=== PATIENT | male | born 1960 | race Caucasian/White ===

== ENCOUNTER 2023-07-28 12:34 | Emergency (ER) | payer MEDICAID ==
[~2023-07-28] VITALS: Ht 182.9 cm; Wt 99.8 kg
[2023-07-28 12:35] VITALS: BP_SYST 156; PULSE 100; RESP 21; TEMP 98.9; O2SAT 97
[2023-07-28] MEDS ORDERED: methylPREDNISolone SOD SUCC/PF 62.5 MG/ML VIAL IVP ONE (12:45)
[2023-07-28] MEDS ORDERED: IPRATROPIUM/ALBUTEROL SULFATE 3 ML AMPUL.NEB (DUONEB) INH ONE (12:45)
[2023-07-28 13:28] LABS: ANION GAP 10 (5-15); CALCIUM 9.2 mg/dL (8.4-11.0); CARBON DIOXIDE 30 mmol/L (23-29); CHLORIDE 101 mmol/L (98-107); CREATININE 1.88 mg/dL (0.55-1.30); GFR AFRICAN AMERICAN 47 mL/min (>90); GLUCOSE 101 mg/dL (74-106); POTASSIUM 3.4 mmol/L (3.5-5.1); SODIUM SERUM 141 mmol/L (136-145); UREA NITROGEN, BLOOD 40 mg/dL (8-21)
[2023-07-28] MEDS ORDERED: PRED20TA PO ×2 (13:29)
[2023-07-28] MEDS ORDERED: ACYC400T19 PO ×2 (13:29)
[2023-07-28 13:30] LABS: GFR NON AFRICAN-AMERICAN 39 mL/min (>90)
[2023-07-28] MEDS ORDERED: METH-776 PO (13:38)
[2023-07-28] MEDS ORDERED: CEFU250T85 PO (13:38)
[2023-07-28 13:42] LABS: INFLUENZA TYPE A Negative (NEGATIVE); INFLUENZA TYPE B NEGATIVE (NEGATIVE)
[2023-07-28] MEDS ORDERED: ACETAMINOPHEN 500 MG TABLET PO ONE (13:45)
[2023-07-28 13:48] LABS: BASOPHILS # (AUTO) 0.1 K/uL (0.0-0.2); BASOPHILS % (AUTO) 0.9 % (0.0-2.0); EOSINOPHILS # (AUTO) 0.1 K/uL (0.0-0.4); EOSINOPHILS % (AUTO) 0.6 % (0.0-4.0); HEMATOCRIT 45.4 % (36-54); HEMOGLOBIN 15.5 g/dL (14.0-18.0); LYMPHOCYTES # (AUTO) 2.2 K/uL (1.0-5.5); LYMPHOCYTES % (AUTO) 13.2 % (20.5-51.5); MEAN CORPUSCULAR HEMOGLOBIN 33 pg (27-31); MEAN CORPUSCULAR HGB CONC 34 % (32-36); MEAN CORPUSCULAR VOLUME 97 fL (79.0-98.0); MONOCYTES # (AUTO) 1.4 K/uL (0.0-1.0); MONOCYTES % (AUTO) 8.4 % (1.7-9.3); NEUTROPHILS # (AUTO) 12.6 K/uL (1.8-7.7); NEUTROPHILS % (AUTO) 76.9 % (40.0-70.0); PLATELET COUNT (AUTO) 350 K/uL (130-430); RED BLOOD CELL COUNT(AUTO) 4.69 MIL/uL (4.2-6.2); RED CELL DISTRIBUTION WIDTH 13.7 % (9.0-15.0); WHITE BLOOD COUNT (AUTO) 16.3 K/uL (4.8-10.8)
[2023-07-28 14:00] VITALS: BP_SYST 148; PULSE 95; RESP 21; TEMP 98.9; O2SAT 98
== END 2023-07-28 14:00 | disposition home or self-care (01) ==
LOC: SED 12:34
DX: J44.1 Chronic obstructive pulmonary disease with (acute) exacerbation (principal); R05.9 Cough, unspecified; R50.9 Fever, unspecified; R06.02 Shortness of breath; Z79.899 Other long term (current) drug therapy; Z20.822 Contact with and (suspected) exposure to COVID-19
CPT/HCPCS: 99285; 96374; 71045; 87426; 80048; 85025; 84484; 36415; 93005; 94640; 94760; 87804 ×2; J2930